=== PATIENT | female | born 1970 | race Caucasian/White ===

== ENCOUNTER 2018-05-27 15:37 | Emergency (ER) | payer BC, OTHER ==
[~2018-05-27] VITALS: Wt 78.2 kg
[2018-05-27] MEDS ORDERED: CIPROFLOXACIN 0.3% 2.5 ML OPH RIGHT EYE ONE (17:00)
[2018-05-27 17:13] VITALS: BP 132/78; PULSE 79; RESP 16
--- NOTE | 2018-05-27 17:13 | ERD ---
ER Documentation Chief Complaint Chief Complaint R eye redness, irritation, pain x1d HPI 47-year-old female who wears contacts presents with history of eye redness and discharge since yesterday. Has not been taking any treatments. Denies any history of trauma or foreign body to the eye. Denies difficulty seeing, but does state that she does not have a pair of backup glasses and she is unable to go to [facility] today because her mother is in the ICU. States that she would like to go tomorrow to optometry to receive glasses. Patient denies pain, thick discharge, nausea, vomiting, fevers, headache. ROS All systems reviewed and are negative except as per history of present illness. Allergies Allergies: Coded Allergies: No Known Allergy (Unverified , 05/27/18) FmHx Family History: No diabetes, No coronary disease, No other Physical Exam Vitals Vital Signs Date Temp Pulse Resp B/P (MAP) Pulse Ox O2 O2 Flow FiO2 Time Delivery Rate 05/27/18 98.0 79 16 132/78 98 Room Air 17:13 (96) 05/27/18 97.9 84 16 137/82 98 15:50 (100) Physical Exam General: Well developed, will nourished. No acute distress. Eyes: R eye injected. Clear watery discharge. No evidence of foreign body, globe rupture, or hyphema. No icterus, lesions, or edema. Heart: RR w/o murmur, rubs, or gallops. Lungs: Clear to auscultation bilaterally w/o wheezes, crackles, rhonchi. Symmetric rise and fall. Equal breath sounds. Results 24 hrs Current Medications Medications Dose Sig/Bina Start Time Status Last (Trade) Ordered Route PRN Stop Time Admin Dose Reason Admin 2 drop ONCE ONCE 05/27/18 DC Ciprofloxacin RIGHT EYE 17:00 HCl 05/27/18 (Ciloxan 17:01 0.3% Oph) 2 drop ONCE ONCE 05/27/18 DC 05/27/18 Ciprofloxacin RIGHT EYE 17:30 17:18 (Ciloxan 05/27/18 0.3% Oph) 17:30 Procedures/MDM ER Course: Ciprofloxacin drops applied to eye. MDM: 47-year-old female who wears contacts presents with history of eye redness and discharge since yesterday. Has not been taking any treatments. Denies any history of trauma or foreign body to the eye. Denies difficulty seeing, but does state that she does not have a pair of backup glasses and she is unable to go to [facility] today because her mother is in the ICU. States that she would like to go tomorrow to optometry to receive glasses. I have low suspicion for globe rupture, hyphema, glaucoma, uveitis, or foreign body based on patients history and physical exam. Due to patients history of contact use decision was made to give ciprofloxacin drops in the ER. Patient was discharged with the bottle of cipro and instructions for use. Patient discharged with strict ER precautions. Patient advised to follow up with PMD. All questions answered at discharge. Departure Diagnosis: Primary Impression: Conjunctivitis Conjunctivitis type: acute Acute conjunctivitis type: unspecified Laterality: right Qualified Codes: H10.31 - Unspecified acute conjunctivitis, right eye Condition: Stable Patient Instructions: Conjunctivitis Caused by Infection Referrals: [facility] YOU HAVE RECEIVED A MEDICAL SCREENING EXAM AND THE RESULTS INDICATE THAT YOU DO NOT HAVE A CONDITION THAT REQUIRES URGENT TREATMENT IN THE EMERGENCY DEPARTMENT. FURTHER EVALUATION AND TREATMENT OF YOUR CONDITION CAN WAIT UNTIL YOU ARE SEEN IN YOUR DOCTORS OFFICE WITHIN THE NEXT 1-2 DAYS. IT IS YOUR RESPONSIBILITY TO MAKE AN APPOINTMENT FOR [facility]- CARE. IF YOU HAVE A PRIMARY DOCTOR --you should call your primary doctor and schedule an appointment IF YOU DO NOT HAVE A PRIMARY DOCTOR YOU CAN CALL OUR PHYSICIAN REFERRAL HOTLINE AT IF YOU CAN NOT AFFORD TO SEE A PHYSICIAN YOU CAN CHOSE FROM THE FOLLOWING [facility] CLINICS [facility] [address] [facility] [address] [facility] [facility] [address] [facility]. [facility] [address] [facility]. [facility] [address] [facility]. [facility]. [address] Additional Instructions: Place 2 drops of antibiotics in right eye every two hours for first two days, then every 4 hours for next five days. FOLLOW UP WITH YOUR PRIMARY CARE PHYSICIAN TOMORROW.Return to this facility if you are not improving as expected. MADHURI RICHARDSON May 27, 2018 17:13
[2018-05-27] MEDS ORDERED: CIPROFLOXACIN 0.3% 5 ML OPH RIGHT EYE ONE (17:30)
== END 2018-05-27 17:17 | disposition home or self-care (01) ==
LOC: FTE 15:37
DX: H10.31 Unspecified acute conjunctivitis, right eye (principal)
CPT/HCPCS: 99283